=== PATIENT | female | born 1985 | race Caucasian/White ===

== ENCOUNTER 2018-01-06 20:00 | Inpatient (IN) | payer OTHER ==
[2018-01-06] MEDS ORDERED: AMPICILLIN - 2 GM in SODIUM CHLORIDE 100 ML IVPB ONE (20:30)
[2018-01-06] MEDS ORDERED: DEXTROSE 5%-LACTATED RINGERS 1,000 ML IV SCH (20:45)
--- NOTE | 2018-01-06 20:49 | HP ---
Past Medical History - Primary Care Physician PCP:: Myriam Clark - Admission Chief Complaint: 32 yrs , edc 01/08/18 39.5/7 weeks IUP c/o SROM since 7.30 PM followed by onset LP since 8.00PM History of Present Illness: pt did not have care in [facility]. pt was seen for interview at [address] [place] [address] , on 01/01/18 , she came to L&D c/o cramps she recently arrived from [place], she was hydrated with fluids , panel was drawn hgb 9.07/15, Random glucose 163, normal liver enz & electrolytes, Rpr nr, hiv nr , Rubella immune sono on 01/01/18 reporte sliup, vx, 39.3 weeks , rory 19.1 weeks , fundal placenta , efw 3741 gm she has few records from her country sono 12/15/17 :sliup, 36.4 weeks, vx, efw 3097gm 04/22/17 h/h13.8/41 , plt 303, liver profile normal, Hbsag neg , hcv antibody nr , Random Glucose on 08/27/17--84. 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 Weeks Gestation by Dates: 40 ...EDC by Dates: 01/06/18 ...EDC by Sono: 01/08/18 (39.5 weeks ) Heme/Onc: Yes: Anemia Infectious Disease: No: AIDS, HIV Psych: Yes: Other (no c/o mental illness) - Past Surgical History Past Surgical History: Yes: Cholecystectomy (kami wattsy 2015) Hx Myomectomy: No Hx Transabdominal Cerclage: No - Alcohol/Substance Use Hx Alcohol Use: No History of Substance Use: reports: None Home Medications - Allergies Allergies/Adverse Reactions: Allergies Allergy/AdvReac Type Severity Reaction Status Date / Time No Known Allergies Allergy Verified 01/06/18 22:59 - Home Medications Home Medications: Ambulatory Orders Vit,Calc76/Iron/Folic [Pnv 29-1 Tablet] 1 tab PO DAILY 01/06/18 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 - Maternity Constitutional: Yes: Well Nourished Eyes: Yes: WNL HENT: Yes: WNL, Normocephalic Neck: Yes: WNL Cardiovascular: Yes: WNL, Regular Rate and Rhythm Lungs: Clear to auscultation - Abdominal Exam/OB Fundal Height: 38 Number of Fetuses: Single Presentation: Vertex Regularity: Irregular (5-6 min) Intensity: Moderate Monitor Mode: External Heart Rate (range): 150 Heart Rate Location: [facility] Category: I Accelerations: Uniform Decelerations: None - Vaginal Exam/OB Vaginal Bleediing: No Dilatation (cm): 3 Effacement (%): 50 Amniotic Membrane Status: Ruptured Nitrazine Test: Positive Amniotic Fluid: Yes: Clear Presentation: Vertex/Position (exam at 8.15 PM) Station: -3 - 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 Musculoskeletal: Yes: WNL Extremities: Yes: WNL. No: Calf Tenderness Edema: Yes Edema: LLE: 1+, RLE: 1+ Deep Tendon Reflex Grade: Normal +2 ...Motor Strength: WNL Psychiatric: Yes: WNL, Alert - Labs Lab Results: Laboratory Tests 01/01/18 01/01/18 01/01/18 17:45 17:45 17:45 WBC 11.0 H Hgb 9.3 L Hct 29.6 L Plt Count 257 PT with INR 12.20 INR 1.08 PTT (Actin FS) 23.6 L Sodium 139 Potassium 4.0 Chloride 107 BUN 7 Creatinine 0.5 L Random Glucose 163 H AST 17 ALT 16 Urine Protein Ur Leukocyte Esterase Urine WBC (Auto) Urine RBC (Auto) Opiates Screen Methadone Screen Barbiturate Screen Phencyclidine Screen Ur Amphetamines Screen MDMA (Ecstasy) Screen Benzodiazepines Screen Cocaine Screen U Marijuana (THC) Screen RPR Titer HIV 1&2 Antibody Screen HIV P24 Antigen 01/01/18 01/01/18 01/01/18 17:45 17:45 18:00 WBC Hgb Hct Plt Count PT with INR INR PTT (Actin FS) Sodium Potassium Chloride BUN Creatinine Random Glucose AST ALT Urine Protein Negative Ur Leukocyte Esterase 2+ H Urine WBC (Auto) 8 Urine RBC (Auto) 4 Opiates Screen Methadone Screen Barbiturate Screen Phencyclidine Screen Ur Amphetamines Screen MDMA (Ecstasy) Screen Benzodiazepines Screen Cocaine Screen U Marijuana (THC) Screen RPR Titer Nonreactive HIV 1&2 Antibody Screen Negative HIV P24 Antigen Negative 01/01/18 18:00 WBC Hgb Hct Plt Count PT with INR INR PTT (Actin FS) Sodium Potassium Chloride BUN Creatinine Random Glucose AST ALT Urine Protein Ur Leukocyte Esterase Urine WBC (Auto) Urine RBC (Auto) Opiates Screen Negative Methadone Screen Negative Barbiturate Screen Negative Phencyclidine Screen Negative Ur Amphetamines Screen Negative MDMA (Ecstasy) Screen Negative Benzodiazepines Screen Negative Cocaine Screen Negative U Marijuana (THC) Screen Negative RPR Titer HIV 1&2 Antibody Screen HIV P24 Antigen Laboratory Tests 01/06/18 01/06/18 21:45 21:45 WBC 15.7 H Hgb 9.7 L Hct 30.8 L Plt Count 270 Sodium 140 Potassium 4.0 Chloride 107 Carbon Dioxide 23 BUN 5 L Random Glucose 104 Laboratory Tests 01/06/18 21:45 Blood Type A POSITIVE Antibody Screen Negative Problem List - Problems (1) with 39 completed weeks gestation Code(s): Z3A.39 - 39 WEEKS GESTATION OF (2) SROM (spontaneous rupture of membranes) Code(s): TQC2577 - (3) History of inadequate care Code(s): O09.30 - SUPRVSN OF PREG W INSUFFICIENT ANTENAT CARE, UNSP TRIMESTER Assessment/Plan 31 yrs , 39.5 weeks srom , in early labor gbs unknown Plan ampicillin ;prophylaxis for gbs prefers epidural labor analgesia trial vaginal delivery
[2018-01-06 21:56] VITALS: BMI 29.8
[2018-01-06 22:11] LABS: HEMATOCRIT 30.8 % (32.4-45.2); HEMOGLOBIN 9.7 GM/dL (10.7-15.3); MCH 23.5 pg (25.7-33.7); MCHC 31.5 g/dl (32.0-36.0); MEAN CELL VOLUME 74.7 fl (80-96); MEAN PLT VOLUME 8.5 fl (7.5-11.1); PLATELET COUNT 270 K/MM3 (134-434); RBC 4.12 M/mm3 (3.60-5.2); RDW 16.4 % (11.6-15.6); WHITE BLOOD COUNT 15.7 K/mm3 (4.0-10.0)
[2018-01-06] MEDS ORDERED: FENTANYL/BUPIVACAINE/NS/PF - PCEA - 50 ML DISP.SYRIN EP ONE (22:16)
[2018-01-06] MEDS ORDERED: BUPIVACAINE HCL/PF 0.25% (2.5MG/ML) 10 ML VIAL ONE ×2 (22:21→23:33)
[2018-01-06 22:33] LABS: ANION GAP 10 MMOL/L (8-16); BLOOD UREA NITROGEN 5 mg/dL (7-18); CALCIUM 8.4 mg/dL (8.5-10.1); CHLORIDE 107 mmol/L (98-107); CO2 23 mmol/L (21-32); CREATININE 0.6 mg/dL (0.55-1.3); GLUCOSE,RANDOM 104 mg/dL (74-106); SODIUM 140 mmol/L (136-145)
[2018-01-06] MEDS ORDERED: NALOXONE HCL 0.4 MG/ML VIAL IVPUSH PRN (22:46)
[2018-01-06] MEDS ORDERED: FENTANYL/BUPIVACAINE/NS/PF - PCEA - 50 ML DISP.SYRIN EP SCH (23:00)
--- NOTE | 2018-01-06 23:12 | PN ---
Progress Note, Labor Vaginal Exam #1 Labor Exam Date: 01/06/18 Labor Exam Time: 23:00 Heart Rate (range): 160 Dilatation: 4-5 Effacement (%): 80 Amniotic Membrane Status: Ruptured Presentation: Vertex/Position Station: -2 Remarks: variable , cat-2 uc 3-5 min epidural received at 22.30 hr Vaginal Exam #2 Labor Exam Date: 01/07/18 Labor Exam Time: 02:15 Heart Rate (range): 150 Dilatation: 8-9 Effacement (%): 100 Amniotic Membrane Status: Ruptured Presentation: Vertex/Position Station: -1 (-1/0) Remarks: fhr cat-1 uc 1-2 min pt c/o epidural 1st time did not work.c/o pain on Lt side 12.15 AM epidural was replaced & 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 Selected Entries temp at 12.00 98.1 1.00 98.2 2.00 98.2 01/07/18 01:30 Pulse Rate 117 H Blood Pressure 115/56 Vaginal Exam #3 Labor Exam Date: 01/07/18 Labor Exam Time: 03:15 Heart Rate (range): 160 Dilatation: rim Effacement (%): 100 Station: 0 (0/+1) Remarks: fhr cat-1 uc 2min pt c/o pain, states she does not have pain relief Vaginal Exam #4 Labor Exam Date: 01/07/18 Labor Exam Time: 05:05 Heart Rate (range): 140 Dilatation: rim lt Amniotic Membrane Status: Ruptured Presentation: Vertex/Position Station: 0 (0+1 , caput) Remarks: fhr cat -2 uc dysfunctional 1-2-3 mild to moderate pt not at rest , c/o constant pain Selected Entries 01/07/18 01/07/18 02:00 05:00 Temperature 98.2 F 98.9 Pulse Rate 124 H Blood Pressure 117/61 Vaginal Exam #5 Labor Exam Date: 01/07/18 Labor Exam Time: 06:15 Heart Rate (range): 140 Dilatation: rim rt Effacement (%): 100 Amniotic Membrane Status: Ruptured Station: 0 (0+1 , caput) Remarks: fhr cat- 1 uc are dysfunctional no progress in dilatation & descent for 4 hrs pt exahusted, refuses to continue trial of labor Plan : delivery by primary c/section Selected Entries 01/07/18 01/07/18 05:00 06:00 Temperature 98.9 F 98.7 F Pulse Rate 124 H 132 Blood Pressure 117/61 112/67
[2018-01-07] MEDS ORDERED: BUPIVACAINE HCL/PF 0.25% (2.5MG/ML) 10 ML VIAL ONE ×2 (00:10→03:30)
[2018-01-07] MEDS: AMPICILLIN - 1 GM in SODIUM CHLORIDE 100 ML IVPB SCH ×3 (00:30→10:09)
[2018-01-07] MEDS ORDERED: AMPICILLIN SODIUM 1 GM VIAL ONE ×2 (00:38→04:13)
[2018-01-07] MEDS ORDERED: FENTANYL/BUPIVACAINE/NS/PF - PCEA - 50 ML DISP.SYRIN EP ONE ×2 (01:38→04:09)
[2018-01-07] MEDS ORDERED: OXYTOCIN 20 UNITS in 0.9% NS 20 UNIT/1,000 ML INFUS.BAG IV ONE ×3 (03:07→10:19)
[2018-01-07] MEDS ORDERED: OXYTOCIN 30 UNITS in 0.9% NS 30 UNIT/500 ML INFUS.BAG IVPB ONE (04:39)
[2018-01-07] MEDS ORDERED: CITRIC ACID/SODIUM CITRATE 30 ML UNIT-DOSE CUP PO ONE (06:27)
[2018-01-07] MEDS ORDERED: ELECTROLYTE-148 SOLN 1,000 ML IV SCH (06:30)
[2018-01-07] MEDS ORDERED: PHENYLEPHRINE HCL 10 MG/1 ML SINGLE DOSE VIAL ONE (07:06)
[2018-01-07] MEDS ORDERED: morphine SULFATE/Preservative Free 0.5 MG/ML (1cc Syringe) ONE (07:06)
[2018-01-07] MEDS ORDERED: ceFAZolin SODIUM 1 GM VIAL ONE ×2 (07:25→15:08)
[2018-01-07] MEDS ORDERED: MIDAZOLAM HCL 2 MG/2 ML SINGLE DOSE VIAL ONE (07:42)
[2018-01-07] MEDS ORDERED: KETOROLAC TROMETHAMINE 30 MG/1 ML VIAL ONE (08:14)
[2018-01-07] MEDS ORDERED: MEPERIDINE HCL CARPU-JECT 25 MG/1 ML DISP.SYRIN ONE (08:20)
[2018-01-07 08:44] LABS: ARTERIAL BLD GAS O2 SATURATION 17.4 % (90-98.9); ARTERIAL BLOOD GAS BASE EXCESS -2.7 meq/l (-2-2); ARTERIAL BLOOD GAS PCO2 57.1 mmHg (35-45); ARTERIAL BLOOD GAS PO2 14.2 mmHg (80-100); ARTERIAL BLOOD GAS pH 7.27 (7.35-7.45)
[2018-01-07 08:54] LABS: VENOUS PH 7.3 (7.32-7.42)
[2018-01-07 08:55] LABS: VENOUS PC02 46.5 mmHg (38-52); VENOUS PO2 22.1 mmHg (28-48)
[2018-01-07] MEDS ORDERED: METHYLERGONOVINE MALEATE 0.2 MG/1 ML AMP IM PRN (09:01)
--- NOTE | 2018-01-07 09:28 | OP ---
Operative Note - Note: Operative Date: 01/07/18 Pre-Operative Diagnosis: 39.6 weeks, failure to progress in labor Operation: Primary Low Flap Transverse C/section Findings: 7.33 AM, Baby Girl, 9/9 , Vx, ROP position Wt 8'2" Ht 20", Clear fluid both tubes & ovaries normal Dr Hylton Associate Entertainment Editor present in the OR Surgeon: Myriam Clark Geological Specialist: Lonny Marino Anesthesiologist/MATCHING MACHINE OPERATOR: Elton Simmons Anesthesia: Spinal Specimens Removed: cord segment for cord gas. cord blood. placenta Estimated Blood Loss (mls): 1,000 Drains, Volume Out (mls): 350 (caitlin color urine in Noonan bag ) Fluid Volume Replaced (mls): 1,500 (2 gm IV ancef, Methergine 0.2mg ) Operative Report Dictated: Yes
[2018-01-07] MEDS ORDERED: morphine SULFATE/Preservative Free 0.5 MG/ML (1cc Syringe) EP ONE (09:30)
[2018-01-07] MEDS ORDERED: ONDANSETRON 4 MG/2 ML VIAL IVPUSH PRN (09:30)
--- NOTE | 2018-01-07 09:44 | PN ---
Delivery - Delivery Section: Primary, Low Flap Transverse (Indication, 39.6 weeks Failure To Progress in Labor) Type of Anesthesia: Spinal Episiotomy/Laceration: None EBL (cc): 1,000 (Noonan out put 350 ml ciatlin color urine ) Delivery, Single - Stages of Labor Date 1st Stage Initiatied: 01/06/18 Time 1st Stage Initiated: 20:00 Date of Delivery: 01/07/18 Time of Delivery: 07:33 Time Placenta Delivered: 07:34 Placenta: Yes: Manual Removal, Uterine Exploration - Condition of Infant Stereotyper Apprentice/Animal Shelter Worker Present: Yes Name: Hannah Hylton Gender: Female Weight: 8 lb 2 oz Position: Right, OP Total Hours ROM (Hrs/Mins): 12/4 - 1 Minute Total Score: 9 5 Minutes Total Score: 9 - [place] Feeding Plan Initial Plan: Elected not to breastfeed exclusively throughout hospitalization Remarks - Remarks Remarks: 32 yrs , 39.5 weeks hospitalized for SROM , followed by labor pain on Epidural labor analgesia was given. GBS unknown , she received 3 doses of Iv Ampicilln Intraop course was uneventful
--- NOTE | 2018-01-07 10:27 | OP ---
DATE OF OPERATION: 01/07/2018 PREOPERATIVE DIAGNOSIS: At 39.6 weeks, failure to progress in labor. OPERATION: Primary low flap transverse section. SURGEON: Myriam Clark MD ANESTHESIOLOGIST: Elton Simmons MD SENIOR PUBLICATIONS SPECIALIST SURGEON: KARINA Cifuentes COMBINE OPERATOR: Hannah Hylton MD ANESTHESIA: Spinal. FINDINGS: This is a 32-year-old, 2, para 1-0-0-1, was 39.6 weeks today. Was hospitalized on January 06 for spontaneous rupture of membranes since 7:30 p.m. on January 06, followed by the onset of labor at 8 p.m. She progressed in labor. Epidural labor analgesia was given, and she dilated up to 9 cm and 0 station. From 2:15 a.m. on January 07 to 6:15 a.m. her dilatation was only 9 cm and station was 0 station with a caput only, so it was failure to progress in labor, and patient requested for a , did not want to continue further trial of labor. Postoperatively, ROP position, baby girl. is 9, 9. Weight was 8 pounds 2 ounces. DESCRIPTION OF PROCEDURE: Abdomen was shaved, prepped. Noonan catheter was placed. The consent was taken. Patient was taken to the operating room table. Epidural was removed and spinal anesthesia was given. Patient was placed in supine position. Abdomen was painted and draped in usual manner. Pfannenstiel incision was made in the skin and subcutaneous tissue. Anterior rectus sheath was incised transversely. Bleeding points were clamped and cauterized. Rectus muscle was from the rectus sheath, then parietal peritoneum was opened vertically. Bladder was distended and high. Then lower flap of the peritoneum was opened transversely, and the bladder was pushed down. Lower uterine segment was isolated, and it was incised transversely. Baby was delivered at 7:32 a.m. from ROP position. was 9, 9, and baby's weight was 8 pounds 2 ounces. Height was 20 inches, baby girl. Cord was clamped and cut. Baby was handed over to the body designer who was present in the operating room. Then cord segment was collected for the cord blood gas, and then the cord blood was collected. Placenta was completely removed with the membranes. Uterine cavity was clean, and the uterine incision was closed in 2 layers. First one was a continuous locking with a Biosyn 0 suture, second was continuous intermittent locking with a Biosyn 0 suture. Then the bladder peritoneum was first closed with a Biosyn 0 suture. Hemostasis was verified. Both tubes and ovaries were normal, and then irrigation was done. Sponge, instrument, needle count was correct. The abdominal closure was done. Parietal peritoneum was closed with a Vicryl 0 suture. Muscles were approximated together with Vicryl 0 interrupted sutures, and then the anterior rectus sheath was closed with a Vicryl 0 continuous suture. Hemostasis was checked before closing the anterior rectus sheath. Underneath the muscle, between sheath and the muscle, hemostasis was verified. In subcutaneous tissue irrigation was done and hemostasis was verified. Subcutaneous tissue was approximated with a 2-0 Vicryl and a 3-0 Biosyn suture. Then skin was approximated with a 3-0 Vicryl on a strait needle. Steri-Strips were applied. Pressure dressing was given. Blood clots were removed from the vagina. Patient tolerated the procedure well. She was transferred to the recovery room in stable condition. Estimated blood loss was 1000 mL. Intraoperative urine output was 350 mL. It was caitlin color. She received 1500 mL of the IV fluid. She was given IM Methergine intraoperatively to active good uterine contraction and retraction, and she received 2 g of IV Ancef prior to the incision. Triny [id number] MTDD
[2018-01-07] MEDS: OXYTOCIN 20 UNITS in 0.9% NS 20 UNIT/1,000 ML INFUS.BAG IV SCH ×2 (10:30→18:24)
[2018-01-07] MEDS: ACETAMINOPHEN 1000 MG/100 ML VIAL (NON FORMULARY) IVPB PRN ×2 (13:21→19:34)
[2018-01-07] MEDS ORDERED: DEXTROSE 5%-WATER - 50 ML IVPB ONE (15:08)
[2018-01-07] MEDS: CEFAZOLIN 1 GM in DEXTROSE 5%-WATER - 50 ML IVPB SCH (15:13)
[2018-01-08] MEDS ORDERED: ceFAZolin SODIUM 1 GM VIAL ONE ×2 (00:26→07:04)
[2018-01-08] MEDS ORDERED: DEXTROSE 5%-WATER - 50 ML IVPB ONE ×2 (00:26→07:04)
[2018-01-08] MEDS: CEFAZOLIN 1 GM in DEXTROSE 5%-WATER - 50 ML IVPB SCH ×2 (00:30→07:09)
[2018-01-08] MEDS: ACETAMINOPHEN 1000 MG/100 ML VIAL (NON FORMULARY) IVPB PRN (01:43)
[2018-01-08] MEDS ORDERED: oxyCODONE HCL 5 MG TABLET PO PRN (06:00)
[2018-01-08 07:14] LABS: BASO % 0.4 % (0-2.0); EOS % 0.7 % (0-4.5); HEMATOCRIT 22.3 % (32.4-45.2); LYMPH % 27.9 % (8-40); MCH 23.6 pg (25.7-33.7); MCHC 31.2 g/dl (32.0-36.0); MEAN CELL VOLUME 75.6 fl (80-96); MONO % 7.4 % (3.8-10.2); NEUT % 63.6 % (42.8-82.8); PLATELET COUNT 243 K/MM3 (134-434); RBC 2.95 M/mm3 (3.60-5.2); RDW 16.5 % (11.6-15.6); WHITE BLOOD COUNT 19.7 K/mm3 (4.0-10.0)
[2018-01-08] MEDS: oxyCODONE HCL 5 MG TABLET PO PRN (07:21)
[2018-01-08] MEDS: IBUPROFEN 600 MG TABLET (FP) PO PRN ×4 (07:22→22:46)
[2018-01-08] MEDS: SIMETHICONE 80 MG TAB.CHEW (FP) PO PRN ×3 (07:23→18:15)
[2018-01-08] MEDS ORDERED: BISACODYL 10 MG SUPP.RECT RC PRN (09:01)
[2018-01-08] MEDS: PRENATAL VITAMINS W/ FOLIC ACID TABLET (FP) PO SCH (09:39)
[2018-01-08] MEDS ORDERED: ENOXAPARIN NA (PORCINE) 40 MG/0.4 ML DISP.SYRIN SQ ONE (10:00)
[2018-01-08] MEDS ORDERED: DIPHTH,PERTUSS(ACELL),TET 0.5 ML DISP.SYRIN IM ONE (10:00)
--- NOTE | 2018-01-08 10:45 | PN ---
Post Progress Note - Subjective Subjective: 32 yo Para 2 status post , seen and evaluated. Doing well. Post Day: 1 Type of Delivery: Primary C/S Vital Signs: Vital Signs Temperature 98.3 F 01/08/18 08:00 Pulse Rate 103 H 01/08/18 08:00 Respiratory Rate 17 01/08/18 08:00 Blood Pressure 105/59 01/08/18 08:00 O2 Sat by Pulse Oximetry (%) 99 01/07/18 10:00 Breast Exam: Yes: Soft Incision: Yes: Dressing dry and intact Abdomen/GI: Yes: Abdomen soft, Tolerating PO Lochia: Yes: Rubra Lochia, amount: Small Extremities: Yes: Calves non-tender Perineum: Yes: Intact Activity: Other (She's lying in bed) - Labs Labs: CBC WBC 19.7 K/mm3 (4.0-10.0) H 01/08/18 06:30 RBC 2.95 M/mm3 (3.60-5.2) L 01/08/18 06:30 Hgb 7.0 GM/dL (10.7-15.3) L 01/08/18 06:30 Hct 22.3 % (32.4-45.2) L D 01/08/18 06:30 MCV 75.6 fl (80-96) L 01/08/18 06:30 MCH 23.6 pg (25.7-33.7) L 01/08/18 06:30 MCHC 31.2 g/dl (32.0-36.0) L 01/08/18 06:30 RDW 16.5 % (11.6-15.6) H 01/08/18 06:30 Plt Count 243 K/MM3 (134-434) 01/08/18 06:30 MPV 8.0 fl (7.5-11.1) 01/08/18 06:30 Absolute Neuts (auto) 12.5 K/mm3 (1.5-8.0) H 01/08/18 06:30 Neutrophils % 63.6 % (42.8-82.8) 01/08/18 06:30 Lymphocytes % 27.9 % (8-40) 01/08/18 06:30 Monocytes % 7.4 % (3.8-10.2) 01/08/18 06:30 Eosinophils % 0.7 % (0-4.5) 01/08/18 06:30 Basophils % 0.4 % (0-2.0) 01/08/18 06:30 Nucleated RBC % 0 % (0-0) 01/08/18 06:30 Assessment/Plan Status post Anemia Consider blood transfusion
--- NOTE | 2018-01-08 11:47 | PN ---
Progress Note (short form) - Note Progress Note: POD #1 - s/p under spinal anesthesia with duramorph. VSS. Pt. doing well, sitting up comfortably in chair nursing baby. No complaints. Good pain control. No apparent anesthetic complications noted. Continue current care.
--- NOTE | 2018-01-08 12:30 | PN ---
Post Progress Note - Subjective Subjective: c/o pain 6-7/10 voided twice after leung was discontinued she does not feel dizzy , but she feels tired c/o gas discomfort, she is passing flatus Post Day: 1 Type of Delivery: Primary C/S Vital Signs: Vital Signs Temperature 98.3 F 01/08/18 08:00 Pulse Rate 103 H 01/08/18 08:00 Respiratory Rate 17 01/08/18 08:00 Blood Pressure 105/59 01/08/18 08:00 O2 Sat by Pulse Oximetry (%) 99 01/07/18 10:00 Breast Exam: Yes: Soft, Other (BF ). No: Engorged Uterus: Yes: Fundus Firm, Fundus below umbilicus, Non-tender Incision: Yes: Dressing dry and intact. No: Redness, Oozing Abdomen/GI: Yes: Abdomen soft (BS active ), Passing flatus, Tolerating PO ( clear fluids ). No: Abdominal Distention, Tender Lochia: Yes: Rubra Lochia, amount: Moderate Extremities: Yes: Calves non-tender Perineum: Yes: Intact Activity: Ambulating - Labs Labs: CBC WBC 19.7 K/mm3 (4.0-10.0) H 01/08/18 06:30 RBC 2.95 M/mm3 (3.60-5.2) L 01/08/18 06:30 Hgb 7.0 GM/dL (10.7-15.3) L 01/08/18 06:30 Hct 22.3 % (32.4-45.2) L D 01/08/18 06:30 MCV 75.6 fl (80-96) L 01/08/18 06:30 MCH 23.6 pg (25.7-33.7) L 01/08/18 06:30 MCHC 31.2 g/dl (32.0-36.0) L 01/08/18 06:30 RDW 16.5 % (11.6-15.6) H 01/08/18 06:30 Plt Count 243 K/MM3 (134-434) 01/08/18 06:30 MPV 8.0 fl (7.5-11.1) 01/08/18 06:30 Absolute Neuts (auto) 12.5 K/mm3 (1.5-8.0) H 01/08/18 06:30 Neutrophils % 63.6 % (42.8-82.8) 01/08/18 06:30 Lymphocytes % 27.9 % (8-40) 01/08/18 06:30 Monocytes % 7.4 % (3.8-10.2) 01/08/18 06:30 Eosinophils % 0.7 % (0-4.5) 01/08/18 06:30 Basophils % 0.4 % (0-2.0) 01/08/18 06:30 Nucleated RBC % 0 % (0-0) 01/08/18 06:30 Other Findings, Remarks: rs cta i/o adequate Problem List - Problems (1) with 39 completed weeks gestation Code(s): Z3A.39 - 39 WEEKS GESTATION OF (2) SROM (spontaneous rupture of membranes) Code(s): YOQ9341 - (3) History of inadequate care Code(s): O09.30 - SUPRVSN OF PREG W INSUFFICIENT ANTENAT CARE, UNSP TRIMESTER (4) delivery delivered Code(s): O82 - ENCOUNTER FOR DELIVERY WITHOUT INDICATION (5) Anemia Code(s): D64.9 - ANEMIA, UNSPECIFIED (6) Encounter for visit Code(s): Z39.2 - ENCOUNTER FOR ROUTINE FOLLOW-UP Assessment/Plan post op anemia post c/section pt had anemia before c/section she is not symptomatic, hemodynamically she is stable she is notified about h/h 11/08 i offered he blood transfusion , r/b/a explained . she declined anemia counselled she prefers to continue po iron & pnv encourage ambulation, deep breathing & po fluids ct pocare
[2018-01-08] MEDS: ACETAMINOPHEN 325 MG TABLET (FP) PO PRN ×3 (13:27→22:46)
[2018-01-08] MEDS: FERROUS SO4 325 MG TABLET (FP) PO SCH (22:42)
[2018-01-08] MEDS: SENNOSIDES/DOCUSATE COMBO (SENNA PLUS) TABLET (UD) PO PRN (22:42)
--- NOTE | 2018-01-09 06:39 | PN ---
Progress Note (short form) - Note Progress Note: pod 2 ,no c/o passing gas, no dizziness CBC, BMP 01/08/18 06:30 01/06/18 21:45 Last Vital Signs Temp Pulse Resp BP Pulse Ox 97.8 F 99 H 20 97/50 99 01/08/18 20:57 01/08/18 20:57 01/08/18 20:57 01/08/18 20:57 01/07/18 10:00 abdomen soft, no distension, no cva incision dry, clean no calf tenderness no excess vaginal bleeding plan repeat cbc, ambulate iron, vit anemia asymptomatic, will revaluate after cbc
[2018-01-09] MEDS: ACETAMINOPHEN 325 MG TABLET (FP) PO PRN ×3 (06:47→19:26)
[2018-01-09] MEDS: SIMETHICONE 80 MG TAB.CHEW (FP) PO PRN ×3 (06:47→19:26)
[2018-01-09] MEDS: IBUPROFEN 600 MG TABLET (FP) PO PRN ×2 (06:47→19:27)
[2018-01-09] MEDS: FERROUS SO4 325 MG TABLET (FP) PO SCH ×2 (10:57→21:19)
[2018-01-09] MEDS: PRENATAL VITAMINS W/ FOLIC ACID TABLET (FP) PO SCH (10:57)
--- NOTE | 2018-01-09 15:29 | DS ---
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 OPERATOR Vital Signs: Vital Signs Temperature 97.8 F 01/09/18 10:00 Pulse Rate 99 H 01/09/18 10:00 Respiratory Rate 20 01/09/18 10:00 Blood Pressure 104/55 L 01/09/18 10:00 O2 Sat by Pulse Oximetry (%) 99 01/07/18 10:00 Selected Entries 01/10/18 01/10/18 01/11/18 09:06 22:00 10:00 Temperature 98.0 F 98.4 F 98.8 F Pulse Rate 82 77 75 Blood Pressure 101/53 L 107/64 106/65 Constitutional: Yes: Pallor (before blood transfusion she was c/o headache.before discharge patient had no headache), Other (pain scale 5/10) Eyes: Yes: WNL HENT: Yes: WNL Neck: Yes: WNL Cardiovascular: Yes: WNL Respiratory: Yes: WNL Gastrointestinal: Yes: WNL, Normal Bowel Sounds, Soft, Other (bm done). No: Distention Renal/: Yes: WNL, Other (voiding without difficulty). No: CVA Tenderness - Left, CVA Tenderness - Right ....Post : Yes: Uterus firm, Uterus non-tender, Moderate lochia rubra Breast(s): Yes: WNL (BF ., soft) Musculoskeletal: Yes: WNL Extremities: Yes: WNL. No: Calf Tenderness Edema: LLE: 1+, RLE: 1+ Integumentary: Yes: WNL Wound/Incision: Yes: Clean/Dry, Well Approximated, Sutures Intact (intradermal suture), Steri Strips, Open to air Neurological: Yes: WNL, Alert, Oriented ...Motor Strength: WNL Psychiatric: Yes: WNL, Alert, Oriented Labs: CBC, BMP 01/08/18 06:30 01/06/18 21:45 Laboratory Tests 01/10/18 01/11/18 07:00 08:39 WBC 10.8 H 12.0 H RBC 2.69 L 3.64 Hgb 6.4 L* 9.3 L Hct 20.2 L 28.3 L D Plt Count 330 D 346 Delivery - Delivery Section: Primary, Low Flap Transverse (Indication, 39.6 weeks Failure To Progress in Labor) Type of Anesthesia: Spinal Episiotomy/Laceration: None EBL (cc): 1,000 (Noonan out put 350 ml caitlin color urine ) Delivery, Single - Stages of Labor Date 1st Stage Initiatied: 01/06/18 Time 1st Stage Initiated: 20:00 Date of Delivery: 01/07/18 Time of Delivery: 07:33 Time Placenta Delivered: 07:34 Placenta: Yes: Manual Removal, Uterine Exploration - Condition of Efficiency Engineer/Affirmative Action Specialist Present: Yes Name: Hannah Hylton Infant Gender: Female Weight: 8 lb 2 oz Position: Right, OP Total Hours ROM (Hrs/Mins): 12/4 - 1 Minute Total Score: 9 5 Minutes Total Score: 9 - [place] Feeding Plan Initial Plan: Elected not to breastfeed exclusively throughout hospitalization Remarks - Remarks Remarks: 32 yrs , 39.5 weeks hospitalized for SROM , followed by labor pain on Epidural labor analgesia was given. GBS unknown , she received 3 doses of Iv Ampicilln Intraop course was uneventful . post op Anemia continued pt counselled for anemia she had declined blood transfusion, pt was symptomatic with headache ,anemia , on 01/10 post op day #3, she finally agreed to take blood transfusion. she received 2 pack cell transfusions. on 01/10/18 she felt better , she is discharged by Dr Wilson on 01/11/18 Discharge Summary Reason For Visit: LABOR Current Active Problems Anemia (Acute) delivery delivered (Acute) Encounter for visit (Acute) Failure to progress in first stage of labor (Acute) History of inadequate care (Acute) with 39 completed weeks gestation (Acute) SROM (spontaneous rupture of membranes) (Acute) Condition: Stable - Instructions Diet, Activity, Other Instructions: Post Instructions DIET: Continue good diet high in protein, calcium, and iron rich foods. Drink at least eight (8) glasses of water daily in addition to other fluids. ct Regular diet MEDICATIONS: Continue vitamins and iron as previously directed. Motrin and Tylenol may be taken for minor discomfort. ACTIVITY: Mild to moderate exercise may be started in two (2) weeks. Take frequent rest periods. Resume normal activity after six (6) week check up. WOUND CARE OF OPERATIVE SITE: Continue use of perineal bottle until vaginal discharge stops. Keep area clean. Shower daily. Keep abdominal wound dry. Report any drainage or redness to physician. Tub baths, tampons and douches are not permitted for [address] Breast feeding & or Bottle feeding BREAST CARE: (For those that are not breast feeding): If engorgement occurs: Wear tight fitting bra. Take Tylenol or Motrin for pain. Apply cold packs (ice in bags to each breast ) FAMILY PLANNING: There are many control alternatives to pursue and they should be discussed at your first office visit. You may resume sexual activity after your six (6) week check up. (Remember, breast feeding is not a contraceptive) NEXT PHYSICIAN APPOINTMENT: Be certain to call for a one (1 ) week appointment, unless otherwise directed. REPEAT CBC In the Clininc in the clinic after4 weeks Call Clinic or got to Emergency Dept if you have any of the following: Heavy vaginal bleeding Painful urination Leg pain Unusual odor noted to vaginal bleeding High fever Red streaking noted on breast Referrals: Myriam Clark MD [Staff Physician] - - Home Medications Comprehensive Discharge Medication List: Ambulatory Orders Vit,Calc76/Iron/Folic [Pnv 29-1 Tablet] 1 tab PO DAILY 01/06/18 Acetaminophen [Tylenol .Regular Strength -] 500 mg PO Q4H PRN #30 tablet Ferrous Sulfate [Feosol] 325 mg PO BID #60 tab 01/08/18 Ibuprofen [Motrin -] 600 mg PO Q4H PRN #30 tablet 01/08/18 Vitamins (Sjr) - 1 tab PO DAILY #30 tablet 01/08/18 Sennosides/Docusate Sodium [Pericolace -] 2 tablet PO HS PRN #60 tablet
[2018-01-09] MEDS: oxyCODONE HCL 5 MG TABLET PO PRN (19:27)
[2018-01-09] MEDS: SENNOSIDES/DOCUSATE COMBO (SENNA PLUS) TABLET (UD) PO PRN (21:20)
[2018-01-10] MEDS: SIMETHICONE 80 MG TAB.CHEW (FP) PO PRN ×3 (03:59→20:06)
[2018-01-10] MEDS: oxyCODONE HCL 5 MG TABLET PO PRN ×2 (04:01→22:02)
[2018-01-10] MEDS: IBUPROFEN 600 MG TABLET (FP) PO PRN ×3 (04:01→20:08)
[2018-01-10] MEDS: ACETAMINOPHEN 325 MG TABLET (FP) PO PRN ×2 (08:05→20:06)
[2018-01-10 08:12] LABS: BASO % 0.5 % (0-2.0); EOS % 3.8 % (0-4.5); HEMATOCRIT 20.2 % (32.4-45.2); LYMPH % 40.3 % (8-40); MCH 23.9 pg (25.7-33.7); MEAN CELL VOLUME 74.9 fl (80-96); MEAN PLT VOLUME 7.8 fl (7.5-11.1); NEUT % 48.4 % (42.8-82.8); PLATELET COUNT 330 K/MM3 (134-434); RBC 2.69 M/mm3 (3.60-5.2); RDW 16.5 % (11.6-15.6); WHITE BLOOD COUNT 10.8 K/mm3 (4.0-10.0)
[2018-01-10 08:18] LABS: HEMOGLOBIN 6.4 GM/dL (10.7-15.3)
--- NOTE | 2018-01-10 08:28 | PN ---
Post Progress Note - Subjective Subjective: 32 yo Para 2 status post primary , seen and evaluated. She c/o headache. She's severely anemic but keeps refusing blood transfusion as advised. Extensive discussion with patient. Post Day: 3 Type of Delivery: Primary C/S Vital Signs: Vital Signs Temperature 98.1 F 01/09/18 22:00 Pulse Rate 94 H 01/09/18 22:00 Respiratory Rate 18 01/09/18 22:00 Blood Pressure 105/62 01/09/18 22:00 O2 Sat by Pulse Oximetry (%) 99 01/07/18 10:00 Breast Exam: Yes: Soft Uterus: Yes: Fundus Firm Incision: Yes: Other (sterile strips in place) Abdomen/GI: Yes: Abdomen soft, Tolerating PO Lochia: Yes: Rubra Lochia, amount: Small Extremities: Yes: Calves non-tender Perineum: Yes: Intact Activity: Ambulating - Labs Labs: CBC WBC 10.8 K/mm3 (4.0-10.0) H 01/10/18 07:00 RBC 2.69 M/mm3 (3.60-5.2) L 01/10/18 07:00 Hgb 6.4 GM/dL (10.7-15.3) L* 01/10/18 07:00 Hct 20.2 % (32.4-45.2) L 01/10/18 07:00 MCV 74.9 fl (80-96) L 01/10/18 07:00 MCH 23.9 pg (25.7-33.7) L 01/10/18 07:00 MCHC 32.0 g/dl (32.0-36.0) 01/10/18 07:00 RDW 16.5 % (11.6-15.6) H 01/10/18 07:00 Plt Count 330 K/MM3 (134-434) D 01/10/18 07:00 MPV 7.8 fl (7.5-11.1) 01/10/18 07:00 Absolute Neuts (auto) 5.2 K/mm3 (1.5-8.0) 01/10/18 07:00 Neutrophils % 48.4 % (42.8-82.8) D 01/10/18 07:00 Lymphocytes % 40.3 % (8-40) H D 01/10/18 07:00 Monocytes % 7.0 % (3.8-10.2) 01/10/18 07:00 Eosinophils % 3.8 % (0-4.5) D 01/10/18 07:00 Basophils % 0.5 % (0-2.0) 01/10/18 07:00 Nucleated RBC % 0 % (0-0) 01/10/18 07:00 Assessment/Plan Status post Anemia Consider blood transfusion
[2018-01-10] MEDS: PRENATAL VITAMINS W/ FOLIC ACID TABLET (FP) PO SCH (10:32)
[2018-01-10] MEDS: FERROUS SO4 325 MG TABLET (FP) PO SCH ×2 (10:32→22:00)
[2018-01-10] MEDS: SENNOSIDES/DOCUSATE COMBO (SENNA PLUS) TABLET (UD) PO PRN (22:00)
[2018-01-11] MEDS: SIMETHICONE 80 MG TAB.CHEW (FP) PO PRN ×2 (05:42→14:28)
[2018-01-11] MEDS: ACETAMINOPHEN 325 MG TABLET (FP) PO PRN ×2 (05:42→14:29)
[2018-01-11] MEDS: oxyCODONE HCL 5 MG TABLET PO PRN ×2 (05:42→09:27)
[2018-01-11] MEDS: IBUPROFEN 600 MG TABLET (FP) PO PRN ×3 (06:12→14:28)
[2018-01-11 08:55] LABS: HEMATOCRIT 28.3 % (32.4-45.2); HEMOGLOBIN 9.3 GM/dL (10.7-15.3); MCH 25.4 pg (25.7-33.7); MCHC 32.8 g/dl (32.0-36.0); MEAN CELL VOLUME 77.6 fl (80-96); MEAN PLT VOLUME 7.2 fl (7.5-11.1); PLATELET COUNT 346 K/MM3 (134-434); RBC 3.64 M/mm3 (3.60-5.2); RDW 17.1 % (11.6-15.6)
[2018-01-11] MEDS: FERROUS SO4 325 MG TABLET (FP) PO SCH (09:26)
[2018-01-11] MEDS: PRENATAL VITAMINS W/ FOLIC ACID TABLET (FP) PO SCH (10:00)
[2018-01-11 10:39] VITALS: BP 106/65; PULSE 75; TEMP 98.8
--- NOTE | 2018-01-11 10:58 | DS ---
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 Vital Signs: Vital Signs Temperature 98.8 F 01/11/18 10:00 Pulse Rate 75 01/11/18 10:00 Respiratory Rate 18 01/11/18 10:00 Blood Pressure 106/65 01/11/18 10:00 O2 Sat by Pulse Oximetry (%) 99 01/07/18 10:00 Constitutional: Yes: Well Nourished HENT: Yes: WNL Neck: Yes: Supple Cardiovascular: Yes: Regular Rate and Rhythm Respiratory: Yes: Regular Gastrointestinal: Yes: Normal Bowel Sounds Vaginal Exam: Yes: Normal Cervix: Yes: Normal Uterus: Yes: Normal Wound/Incision: Yes: Clean/Dry Neurological: Yes: Alert, Oriented ...Motor Strength: WNL Psychiatric: Yes: Alert, Oriented Labs: CBC, BMP 01/11/18 08:39 01/06/18 21:45 Delivery - Delivery Section: Primary, Low Flap Transverse (Indication, 39.6 weeks Failure To Progress in Labor) Type of Anesthesia: Spinal Episiotomy/Laceration: None EBL (cc): 1,000 (Noonan out put 350 ml caitlin color urine ) Delivery, Single - Stages of Labor Date 1st Stage Initiatied: 01/06/18 Time 1st Stage Initiated: 20:00 Date of Delivery: 01/07/18 Time of Delivery: 07:33 Time Placenta Delivered: 07:34 Placenta: Yes: Manual Removal, Uterine Exploration - 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 Present: Yes Name: Hannah Hylton Gender: Female Weight: 8 lb 2 oz Position: Right, OP Total Hours ROM (Hrs/Mins): 12/4 - 1 Minute Total Score: 9 5 Minutes Total Score: 9 - [place] Feeding Plan Initial Plan: Elected not to breastfeed exclusively throughout hospitalization Discharge Summary Reason For Visit: LABOR Current Active Problems Anemia (Acute) delivery delivered (Acute) Encounter for visit (Acute) Failure to progress in first stage of labor (Acute) History of inadequate care (Acute) with 39 completed weeks gestation (Acute) SROM (spontaneous rupture of membranes) (Acute) Procedures: Principal: Hospital Course: Patient developed severe anemia . She was advised to take blood transfusion and she finally accepted. Condition: Stable - Instructions Diet, Activity, Other Instructions: Post Instructions DIET: Continue good diet high in protein, calcium, and iron rich foods. Drink at least eight (8) glasses of water daily in addition to other fluids. ct Regular diet MEDICATIONS: Continue vitamins and iron as previously directed. Motrin and Tylenol may be taken for minor discomfort. ACTIVITY: Mild to moderate exercise may be started in two (2) weeks. Take frequent rest periods. Resume normal activity after six (6) week check up. WOUND CARE OF OPERATIVE SITE: Continue use of perineal bottle until vaginal discharge stops. Keep area clean. Shower daily. Keep abdominal wound dry. Report any drainage or redness to physician. Tub baths, tampons and douches are not permitted for [address] Breast feeding & or Bottle feeding BREAST CARE: (For those that are not breast feeding): If engorgement occurs: Wear tight fitting bra. Take Tylenol or Motrin for pain. Apply cold packs (ice in bags to each breast ) FAMILY PLANNING: There are many control alternatives to pursue and they should be discussed at your first office visit. You may resume sexual activity after your six (6) week check up. (Remember, breast feeding is not a contraceptive) NEXT PHYSICIAN APPOINTMENT: Be certain to call for a one (1 ) week appointment, unless otherwise directed. REPEAT CBC In the Clininc in the clinic after4 weeks Call Clinic or got to Emergency Dept if you have any of the following: Heavy vaginal bleeding Painful urination Leg pain Unusual odor noted to vaginal bleeding High fever Red streaking noted on breast Referrals: Myriam Clark MD [Staff Physician] - - Home Medications Comprehensive Discharge Medication List: Ambulatory Orders Vit,Calc76/Iron/Folic [Pnv 29-1 Tablet] 1 tab PO DAILY 01/06/18 Acetaminophen [Tylenol .Regular Strength -] 500 mg PO Q4H PRN #30 tablet Ferrous Sulfate [Feosol] 325 mg PO BID #60 tab 01/08/18 Ibuprofen [Motrin -] 600 mg PO Q4H PRN #30 tablet 01/08/18 Vitamins (Sjr) - 1 tab PO DAILY #30 tablet 01/08/18 Sennosides/Docusate Sodium [Pericolace -] 2 tablet PO HS PRN #60 tablet
[2018-01-11] MEDS: OXYTOCIN 20 UNITS in 0.9% NS 20 UNIT/1,000 ML INFUS.BAG IV SCH (13:52)
--- NOTE | 2018-01-13 09:22 | PATH ---
Surgical Pathology Report Patient Name: [facility]. Rec. 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 Specimen(s) Received PLACENTA Clinical History , 2014, cholecystectomy 2015 No care 39.5 weeks-failure to progress Final Diagnosis PLACENTA: THIRD TRIMESTER PLACENTA. TRIVASCULAR CORD. MEMBRANES WITH NO DIAGNOSTIC ABNORMALITIES. Electronically Signed Juan Miguel Mares M.D. Gross Description The specimen is received fresh labeled placenta and is a 529 gram, 21.0 x 15.5 x 2.3 cm. placenta with attached membranes and umbilical cord. The attached membranes are phillips, translucent with focal opacities and insert marginally. The umbilical cord measures 13 cm. in length and averages 1.2 cm. in diameter. The cord inserts eccentrically, 3.5 cm. to the nearest margin. No true knots or strictures are identified. Cut surface of the umbilical cord reveals 3 vessels. The surface is gutierrez-blue with minimal fibrin deposition and appropriate caliber vessels. The maternal surface is red-brown with focal defects. Sectioning reveals red-brown, spongy parenchyma. No lesions are identified. 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 01/09/2018 [facility]01/09/2018
== END 2018-01-11 14:40 | disposition home or self-care (01) | DRG 540 ==
LOC: JLDR 20:00 → J3W 01-07 10:30
PROVIDERS: ADMIT Obstetrics & Gynecology; ATTEND Obstetrics & Gynecology
PROC: 10D00Z1 Extraction of Products of Conception, Low, Open Approach (ICD-10-PCS; principal; 2018-01-07)
DX: O62.0 Primary inadequate contractions (principal); O99.02 Anemia complicating childbirth; D64.9 Anemia, unspecified; Z3A.39 39 weeks gestation of pregnancy; Z37.0 Single live birth
CPT/HCPCS: 36415; 36430; 36511; 36600; 71046-TC-FY; 80048; 82803; 85025; 85027; 86850; 86900; 86901; 86922; 88307-TC; 90686; 90715; 94010; G0008; J0131; P9038; P9058

== ENCOUNTER 2018-01-14 18:34 | Observation (INO) | payer OTHER ==
[2018-01-14 20:30] LABS: BASO % 0.7 % (0-2.0); EOS % 4.9 % (0-4.5); HEMATOCRIT 29.6 % (32.4-45.2); HEMOGLOBIN 9.5 GM/dL (10.7-15.3); MCH 25.6 pg (25.7-33.7); MEAN CELL VOLUME 80.1 fl (80-96); MEAN PLT VOLUME 7.3 fl (7.5-11.1); MONO % 7.7 % (3.8-10.2); NEUT % 50.7 % (42.8-82.8); PLATELET COUNT 489 K/MM3 (134-434); RDW 18.5 % (11.6-15.6); WHITE BLOOD COUNT 10.4 K/mm3 (4.0-10.0)
--- NOTE | 2018-01-14 20:30 | PDOC ---
History of Present Illness <Tyrone Bragg - Last Filed: 01/14/18 21:36> - History of Present Illness Initial Comments: 01/14/18 20:27 The patient is a 32 year old female with a past medical history of anemia requiring transfusion who presents to the emergency department with palpitations , weakness, and bilateral lower extremity swelling. Pt states that her symptoms started after her 1 week ago. She notes progressively worsening bilateral lower extremity swelling without calf tenderness. Pt denies chest pain but endorses mild orthopnea. Pt also states that when she goes to sleep, she feels her heart pounding in her chest. Of note, pt states that she required transfusions due to anemia after her C- section on 01/07. At that time her hemoglobin was 9.3 then dropped to 6.3 after surgery. She received 2 units of blood and it raised to 9.3.(last checked on ) She denies recent fevers, chills, headache or dizziness. She denies recent nausea, vomit, diarrhea or constipation. She denies recent dysuria, frequency, urgency or hematuria. Allergies: NKA Past surgical history: x1. Social history: Nonsmoker. Denies EtOH use and recreational drug use. 01/14/18 22:13 <Otto Islas - Last Filed: 01/14/18 22:23> - General Chief Complaint: Weakness Stated Complaint: Syncope/Near Syncope Time Seen by Provider: 01/14/18 19:58 Past History <Tyrone Bragg - Last Filed: 01/14/18 21:36> - Past Medical History Asthma: No Cancer: No Cardiac Disorders: No COPD: No Diabetes: No HTN: No Seizures: No Thyroid Disease: No - Suicide/Smoking/Psychosocial Hx Smoking History: Never smoked Have you smoked in the past 12 months: No Hx Alcohol Use: No Drug/Substance Use Hx: No Hx Substance Use Treatment: No <Otto Islas - Last Filed: 01/14/18 22:23> - Past Medical History Allergies/Adverse Reactions: Allergies Allergy/AdvReac Type Severity Reaction Status Date / Time No Known Allergies Allergy Verified 01/06/18 22:59 Home Medications: Ambulatory Orders Vit,Calc76/Iron/Folic [Pnv 29-1 Tablet] 1 tab PO DAILY 01/06/18 Acetaminophen [Tylenol .Regular Strength -] 500 mg PO Q4H PRN #30 tablet Ferrous Sulfate [Feosol] 325 mg PO BID #60 tab 01/08/18 Ibuprofen [Motrin -] 600 mg PO Q4H PRN #30 tablet 01/08/18 Vitamins (Sjr) - 1 tab PO DAILY #30 tablet 01/08/18 Sennosides/Docusate Sodium [Pericolace -] 2 tablet PO HS PRN #60 tablet Ferrous Sulfate [Feosol] 325 mg PO BID #90 tablet 01/11/18 Review of Systems - Review of Systems Comments:: 01/14/18 20:28 GENERAL/CONSTITUTIONAL: No fever or chills. + weakness. HEAD, EYES, EARS, NOSE AND THROAT: No change in vision. No ear pain or discharge. No sore throat. + CARDIOVASCULAR: Palpitations. No chest pain or shortness of breath. RESPIRATORY: No cough, wheezing, or hemoptysis. GASTROINTESTINAL: No nausea, vomiting, diarrhea or constipation. GENITOURINARY: No dysuria, frequency, or change in urination. + MUSCULOSKELETAL: Bilateral lower extremity swelling. No joint or muscle pain. No neck or back pain. SKIN: No rash NEUROLOGIC: No headache, vertigo, loss of consciousness, or change in strength/ sensation. ENDOCRINE: No increased thirst. No abnormal weight change. HEMATOLOGIC/LYMPHATIC: No anemia, easy bleeding, or history of blood clots. ALLERGIC/IMMUNOLOGIC: No hives or skin allergy. <Otto Islas - Last Filed: 01/14/18 22:23> *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 - Vital Signs Last Vital Signs Temp Pulse Resp BP Pulse Ox 99.4 F 66 16 121/67 99 01/14/18 18:40 01/14/18 18:40 01/14/18 18:40 01/14/18 18:40 01/14/18 18:40 <Tyrone Bragg - Last Filed: 01/14/18 21:36> - Vital Signs Last Vital Signs Temp Pulse Resp BP Pulse Ox 99.4 F 66 16 121/67 99 01/14/18 18:40 01/14/18 18:40 01/14/18 18:40 01/14/18 18:40 01/14/18 18:40 - 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 Comments: 01/14/18 20:29 GENERAL: Awake, alert, and fully oriented, in no acute distress. HEAD: No signs of trauma EYES: PERRLA, EOMI, sclera anicteric, conjunctiva clear ENT: Auricles normal inspection, hearing grossly normal, nares patent, oropharynx clear without exudates. Moist mucosa NECK: Nontender, no stepoffs, Normal ROM, supple, no lymphadenopathy, JVD, or masses LUNGS: Breath sounds equal, clear to auscultation bilaterally. No wheezes, and no crackles HEART: Regular rate and rhythm, normal S1 and S2, no murmurs, rubs or gallops ABDOMEN: + low transverse incision well healing, no erythema or induration, Soft, nontender, normoactive bowel sounds. No guarding, no rebound. No masses EXTREMITIES: +2 PE BLE NEUROLOGICAL: Cranial nerves II through XII intact. 5/5 strength and sensation in all extremities, Normal speech, normal gait, normal cerebellar function SKIN: Warm, Dry, normal turgor, no rashes or lesions noted. <Ou,Otto - Last Filed: 01/14/18 22:23> Heart Score/ECG Review - History History: Slightly suspicious - Electrocardiogram EKG: Normal - Age Age: </= 45 - Risk Factors Based on the list above the patient has:: No risk factors known - Troponin Troponin: </= normal limit - Score Heart Score - Total: 0 - ECG Impressions Comment:: 01/14/18 21:04 NSR, no SIDNEY/STDs, no TWIs, axis wnl, intervals wnl, rate 60 <Ou,Otto - Last Filed: 01/14/18 22:23> ED Treatment Course - LABORATORY CBC & Chemistry Diagram: 01/14/18 20:13 01/14/18 20:13 - ADDITIONAL ORDERS Additional order review: Laboratory Results 01/14/18 01/14/18 01/14/18 20:55 20:13 20:13 PT with INR 12.70 INR 1.12 H PTT (Actin FS) 28.2 Sodium 144 Potassium 4.3 Chloride 111 H Carbon Dioxide 24 Anion Gap 10 BUN 9 Creatinine 0.5 L Creat Clearance w eGFR > 60 Random Glucose 99 Calcium 8.7 Total Bilirubin 0.2 AST 28 ALT 41 Alkaline Phosphatase 243 H Creatine Kinase Troponin I B-Natriuretic Peptide Total Protein 6.6 Albumin 2.4 L Urine Color Straw Urine Appearance Clear Urine pH 6.0 Ur Specific [place] 1.009 Urine Protein Negative Urine Glucose (UA) Negative Urine Ketones Negative Urine Blood 3+ H Urine Nitrite Negative Urine Bilirubin Negative Urine Urobilinogen Negative Ur Leukocyte Esterase 2+ H 01/14/18 20:13 PT with INR INR PTT (Actin FS) Sodium Potassium Chloride Carbon Dioxide Anion Gap BUN Creatinine Creat Clearance w eGFR Random Glucose Calcium Total Bilirubin AST ALT Alkaline Phosphatase Creatine Kinase 69 Troponin I < 0.02 B-Natriuretic Peptide 511.0 H Total Protein Albumin Urine Color Urine Appearance Urine pH Ur Specific [place] Urine Protein Urine Glucose (UA) Urine Ketones Urine Blood Urine Nitrite Urine Bilirubin Urine Urobilinogen Ur Leukocyte Esterase 01/14/18 20:13 RBC 3.70 MCV 80.1 MCHC 32.0 RDW 18.5 H MPV 7.3 L Neutrophils % 50.7 Lymphocytes % 36.0 Monocytes % 7.7 Eosinophils % 4.9 H Basophils % 0.7 <Tyrone Bragg - Last Filed: 01/14/18 21:36> - LABORATORY CBC & Chemistry Diagram: 01/14/18 20:13 01/14/18 20:13 - RADIOLOGY Radiology Studies Ordered: Category Date Time Status CHEST PA & LAT [RAD] Stat Radiology 01/14/18 20:06 Ordered DUPLEX VASCUL US-2LEGS [US] Stat Ultrasound 01/14/18 20:06 Ordered <Otto Islas - Last Filed: 01/14/18 22:23> Medical Decision Making - Medical Decision Making 01/14/18 21:[address] 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 01/14/18 21:[address] Cano, case was discussed. <Tyrone Bragg - Last Filed: 01/14/18 21:36> - Medical Decision Making 01/14/18 20:30 32 F with weakness, palpitations, and BLE swelling. Pt with no SOB or chest pain but will evaluate for heart failure. Swelling appears symmetric but will also evaluate for DVT. Pt with normal vitals at this time. Will work up for infectious process as pt has low-grade temp 99.4 in ED. - Labs, trop, BNP - CXR, UA - EKG - BLE dopplers 01/14/18 21:33 BNP elevated to 500 CXR with cardiomegaly Concerning for possible peripartum cardiomyopathy - Cards consult placed 01/14/18 21:[address] Cano, who agrees with plan to admit to tele obs and order echo. 01/14/18 22:23 Admitted to hospitalist. <Otto Islas - Last Filed: 01/14/18 22:23> *DC/Admit/Observation/Transfer - Attestations Scribe Attestion: 01/14/18 21:25 Documentation prepared by Tyrone Bragg, acting as medical records coordinator for Otto Islas MD. <Tyrone Bragg - Last Filed: 01/14/18 21:36> - Discharge Dispostion Decision to Admit order: Yes - Attestations Physician Attestion: 01/14/18 22:23 I, Dr. Otto Islas MD, attest that this document has been prepared under my direction and personally reviewed by me in its entirety. I further attest, that it accurately reflects all work, treatment, procedures and medical decision -making performed by me. <Otto Islas - Last Filed: 01/14/18 22:23> Diagnosis at time of Disposition: Peripartum cardiomyopathy
[2018-01-14 20:42] LABS: INR 1.12 (0.83-1.09); PROTHROMBIN TIME (PATIENT) 12.7 SEC (9.7-13.0)
[2018-01-14 20:45] LABS: ACTIVATED PTT 28.2 SECONDS (25.2-36.5)
[2018-01-14 21:01] LABS: ALBUMIN 2.4 g/dl (3.4-5.0); ALK PHOS 243 U/L (45-117); ANION GAP 10 MMOL/L (8-16); BILIRUBIN,TOTAL 0.2 mg/dL (0.2-1); BLOOD UREA NITROGEN 9 mg/dL (7-18); CALCIUM 8.7 mg/dL (8.5-10.1); CHLORIDE 111 mmol/L (98-107); CO2 24 mmol/L (21-32); CREATININE 0.5 mg/dL (0.55-1.3); GLUCOSE,RANDOM 99 mg/dL (74-106); POTASSIUM 4.3 mmol/L (3.5-5.1); SGOT/AST 28 U/L (15-37); SGPT/ALT 41 U/L (13-61); SODIUM 144 mmol/L (136-145); TOT PROT 6.6 g/dl (6.4-8.2)
[2018-01-14 21:12] LABS: URINE APPEARANCE CLEAR; URINE BILIRUBIN NEGATIVE (<2.0 mg/dL); URINE COLOR STRAW; URINE GLUCOSE (UA) NEGATIVE (NEGATIVE); URINE KETONE NEGATIVE (NEGATIVE); URINE NITRITE NEGATIVE (NEGATIVE); URINE PROTEIN NEGATIVE (NEGATIVE); URINE UROBILINOGEN NEGATIVE mg/dL (0.2-1.0)
[2018-01-14 21:14] LABS: URINE LEUK ESTERASE 2+ (NEGATIVE)
[2018-01-14 21:17] LABS: EPI CELLS RARE /HPF (FEW); URINE BACTERIA RARE /hpf (NONE SEEN); URINE MUCUS RARE
--- NOTE | 2018-01-14 22:33 | PN ---
Teaching Attending Note Name of Resident: Deborah Staton ATTENDING PHYSICIAN STATEMENT I saw and evaluated the patient. I reviewed the resident's note and discussed the case with the resident. I agree with the resident's findings and plan as documented. SUBJECTIVE: 32 y/o F presented to ED c/o b/l lower extremity swelling and palpitations and weakness. Patient recently had baby via with hgb drop by 3 requiring transfusion of 2 U. was without any complications as per patient. PAtient reports flying from [place] to [place] in last trimester of OBJECTIVE: Vital Signs Temperature 99.4 F 01/14/18 18:40 Pulse Rate 66 01/14/18 18:40 Respiratory Rate 16 01/14/18 18:40 Blood Pressure 121/67 01/14/18 18:40 O2 Sat by Pulse Oximetry (%) 99 01/14/18 18:40 GEN:Alert and Oriented times 3 HEENT:PERRLA, EOMI, MMM CVS:RRR, S1, S2 LUNGS:CTA ABD:Soft, NT, ND, BS+ Ext: Swelling Neuro:CN2-12 intact CBCD WBC 10.4 K/mm3 (4.0-10.0) H 01/14/18 20:13 RBC 3.70 M/mm3 (3.60-5.2) 01/14/18 20:13 Hgb 9.5 GM/dL (10.7-15.3) L 01/14/18 20:13 Hct 29.6 % (32.4-45.2) L 01/14/18 20:13 MCV 80.1 fl (80-96) 01/14/18 20:13 MCHC 32.0 g/dl (32.0-36.0) 01/14/18 20:13 RDW 18.5 % (11.6-15.6) H 01/14/18 20:13 Plt Count 489 K/MM3 (134-434) H D 01/14/18 20:13 MPV 7.3 fl (7.5-11.1) L 01/14/18 20:13 CMP Sodium 144 mmol/L (136-145) 01/14/18 20:13 Potassium 4.3 mmol/L (3.5-5.1) 01/14/18 20:13 Chloride 111 mmol/L (98-107) H 01/14/18 20:13 Carbon Dioxide 24 mmol/L (21-32) 01/14/18 20:13 Anion Gap 10 MMOL/L (8-16) 01/14/18 20:13 BUN 9 mg/dL (7-18) 01/14/18 20:13 Creatinine 0.5 mg/dL (0.55-1.3) L 01/14/18 20:13 Creat Clearance w eGFR > 60 (>60) 01/14/18 20:13 Random Glucose 99 mg/dL (74-106) 01/14/18 20:13 Calcium 8.7 mg/dL (8.5-10.1) 01/14/18 20:13 Total Bilirubin 0.2 mg/dL (0.2-1) 01/14/18 20:13 AST 28 U/L (15-37) 01/14/18 20:13 ALT 41 U/L (13-61) 01/14/18 20:13 Alkaline Phosphatase 243 U/L (45-117) H 01/14/18 20:13 Total Protein 6.6 g/dl (6.4-8.2) 01/14/18 20:13 Albumin 2.4 g/dl (3.4-5.0) L 01/14/18 20:13 CARDIAC ENZYMES Creatine Kinase 69 IU/L (26-192) 01/14/18 20:13 Troponin I < 0.02 ng/ml (0.00-0.05) 01/14/18 20:13 ASSESSMENT AND PLAN: R/O Peripartum Cardiomyopathy vs CHF 2L Oxygen via NC ECHO Consider Cardiology consult Admit to telemetry for monitoring Consider MEDICAL BILLING ASSISTANT consult DVT prophylaxis Problem List - Problems (1) Peripartum cardiomyopathy Code(s): O90.3 - PERIPARTUM CARDIOMYOPATHY (2) Anemia Code(s): D64.9 - ANEMIA, UNSPECIFIED
--- NOTE | 2018-01-15 02:41 | HP ---
CHIEF COMPLAINT: palpitations and weakness PCP: HISTORY OF PRESENT ILLNESS: 32F w/ pmhx of anemia (recently requiring transfusion after performed on 01/07) presents today with 1 week hx of palpitations and weakness. Pt reports after , she has been experiencing intermittent palpitations and decided to come to the hospital after measuring her heart rate at 60. She states that she has never had palpitations or a cardiac history before. She reports having these palpitations at any time and is unrelated to exertion. She feels these episodes especially when laying down in bed. Additionally, she admits to bilateral lower leg swelling after her . Denies f/c, n/v, sob , chest pain, dizziness, fainting episodes, hadley. She does admit to headaches. Pt reports taking Ibuprofen and Tylenol at home. Of note, pt had a prior to recently; her Hgb was 9.3 and subsequently dropped to 6.3 after the C-s. She was transfused 2U of blood after which her Hgb increased to 9.3. ER course was notable for: (1) Hgb 9.5, U/A showed 3+ blood and 2+ LE, Alk P 243 (2) EKG showed NSR, no evidence of ischemia. B/L LE dopplers neg for DVT; CXR showed borderline cardiomegaly w/o evidence of acute lung disease (3) Echo and cardio consult ordered Recent Travel: Pt recently came from [facility] on Dec 20, 2018. 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 Family History: Mother: HTN, DM Allergies No Known Allergies Allergy (Verified 01/06/18 22:59) HOME MEDICATIONS: Home Medications Medication Instructions Recorded Vit,Calc76/Iron/Folic 1 tab PO DAILY 01/06/18 [Pnv 29-1 Tablet] Acetaminophen [Tylenol .Regular 500 mg PO Q4H PRN #30 tablet 01/08/18 Strength -] Ferrous Sulfate [Feosol] 325 mg PO BID #60 tab 01/08/18 Ibuprofen [Motrin -] 600 mg PO Q4H PRN #30 tablet 01/08/18 Vitamins (Sjr) - 1 tab PO DAILY #30 tablet 01/08/18 Sennosides/Docusate Sodium 2 tablet PO HS PRN #60 tablet 01/08/18 [Pericolace -] Ferrous Sulfate [Feosol] 325 mg PO BID #90 tablet 01/11/18 REVIEW OF SYSTEMS CONSTITUTIONAL: +generalized weakness Absent: fever, chills, diaphoresis, malaise, loss of appetite, weight change HEENT: Absent: rhinorrhea, nasal congestion, throat pain, throat swelling, difficulty swallowing, mouth swelling, ear pain, eye pain, visual changes CARDIOVASCULAR: +palpitations Absent: chest pain, syncope, , irregular heart rate, lightheadedness, peripheral edema RESPIRATORY: Absent: cough, shortness of breath, dyspnea with exertion, orthopnea, wheezing, stridor, hemoptysis GASTROINTESTINAL: Absent: abdominal pain, abdominal distension, nausea, vomiting, diarrhea, constipation GENITOURINARY: Absent: dysuria, frequency, urgency, hesitancy, hematuria, flank pain, genital pain MUSCULOSKELETAL: +b/l LE swelling Absent: myalgia, arthralgia, joint swelling, back pain, neck pain SKIN: Absent: rash, itching, pallor HEMATOLOGIC/IMMUNOLOGIC: Absent: easy bleeding, easy bruising, lymphadenopathy, frequent infections ENDOCRINE: Absent: unexplained weight gain, unexplained weight loss, heat intolerance, cold intolerance NEUROLOGIC: +headache Absent: focal weakness or paresthesias, dizziness, unsteady gait, seizure, mental status changes, bladder or bowel incontinence PSYCHIATRIC: Absent: anxiety, depression, suicidal or homicidal ideation, hallucinations. PHYSICAL EXAMINATION Vital Signs - 24 hr 01/14/18 01/15/18 18:40 01:17 Temperature 99.4 F 98.8 F Pulse Rate 66 Pulse Rate [ 67 Right] Respiratory 16 18 Rate Blood Pressure 121/67 Blood Pressure 123/66 [Right Arm] O2 Sat by Pulse 99 97 Oximetry (%) GENERAL: AAOx3. NAD. Well-appearing female. HEENT: Normal with no signs of trauma. SILVANO. EOMI. Pale conjunctiva. Non- icteric sclera. Ears normal, nares patent. Moist mucous membranes. NECK: Supple, no LAD/JVD. LUNGS: CTA B/L. No w/r/r noted. Symmetric chest rise. HEART: RRR. Normal S1, S2. No m/r/g noted. ABDOMEN: Soft, NT/ND. Normactive BS in all 4Q's. No masses or bruits noted. MUSCULOSKELETAL: Moves all extremities. UPPER EXTREMITIES: 2+ pulses, warm, well-perfused. No cyanosis. No clubbing. No peripheral edema. 5/5 muscle strength b/l extremities. 3+ pitting edema. LOWER EXTREMITIES: 2+ pulses, warm, well-perfused. No calf tenderness. No peripheral edema. 5/5 muscle strength b/l extremities. 3+ pitting edema. NEUROLOGICAL: Cranial nerves II-XII intact. Normal speech. Normal gait. PSYCHIATRIC: Cooperative. Good eye contact. Appropriate mood and affect. SKIN: Warm, dry, normal turgor, no rashes or lesions noted, normal capillary refill. Laboratory Results - last 24 hr 01/14/18 01/14/18 01/14/18 20:13 20:13 20:13 WBC 10.4 H RBC 3.70 Hgb 9.5 L Hct 29.6 L MCV 80.1 MCH 25.6 L MCHC 32.0 RDW 18.5 H Plt Count 489 H D MPV 7.3 L Absolute Neuts (auto) 5.3 Neutrophils % 50.7 Lymphocytes % 36.0 Monocytes % 7.7 Eosinophils % 4.9 H Basophils % 0.7 Nucleated RBC % 0 PT with INR 12.70 INR 1.12 H PTT (Actin FS) 28.2 Sodium Potassium Chloride Carbon Dioxide Anion Gap BUN Creatinine Creat Clearance w eGFR Random Glucose Calcium Total Bilirubin AST ALT Alkaline Phosphatase Creatine Kinase 69 Troponin I < 0.02 B-Natriuretic Peptide 511.0 H Total Protein Albumin Urine Color Urine Appearance Urine pH Ur Specific [place] Urine Protein Urine Glucose (UA) Urine Ketones Urine Blood Urine Nitrite Urine Bilirubin Urine Urobilinogen Ur Leukocyte Esterase Urine WBC (Auto) Urine RBC (Auto) Ur Epithelial Cells Urine Bacteria Urine Mucus Blood Type Antibody Screen 01/14/18 01/14/18 01/14/18 20:13 20:13 20:55 WBC RBC Hgb Hct MCV MCH MCHC RDW Plt Count MPV Absolute Neuts (auto) Neutrophils % Lymphocytes % Monocytes % Eosinophils % Basophils % Nucleated RBC % PT with INR INR PTT (Actin FS) Sodium 144 Potassium 4.3 Chloride 111 H Carbon Dioxide 24 Anion Gap 10 BUN 9 Creatinine 0.5 L Creat Clearance w eGFR > 60 Random Glucose 99 Calcium 8.7 Total Bilirubin 0.2 AST 28 ALT 41 Alkaline Phosphatase 243 H Creatine Kinase Troponin I B-Natriuretic Peptide Total Protein 6.6 Albumin 2.4 L Urine Color Straw Urine Appearance Clear Urine pH 6.0 Ur Specific [place] 1.009 Urine Protein Negative Urine Glucose (UA) Negative Urine Ketones Negative Urine Blood 3+ H Urine Nitrite Negative Urine Bilirubin Negative Urine Urobilinogen Negative Ur Leukocyte Esterase 2+ H Urine WBC (Auto) 45 Urine RBC (Auto) 26 Ur Epithelial Cells Rare Urine Bacteria Rare Urine Mucus Rare Blood Type A POSITIVE Antibody Screen Negative ASSESSMENT/PLAN: 32F w/ pmhx of recent anemia requiring transfusion after performed on 01/07 presents today with 1 week hx of palpitations and weakness admitted for peripartum cardiomyopathy. #Palpitations, likely peripartum cardiomyopathy, r/o heart failure; CXR showed cardiomegaly. -Pt has no complaints of chest pain or shortness of breath, however, she has b/ l LE pitting edema, although was recently . Echo ordered to r/o heart failure. -Monitor patient on tele obs -f/u cardio recs -consider cytology laboratory manager consult #Hx of anemia; Pt asymptomatic. -Hgb currently stable at 9.5 -repeat CBC in AM #DVT ppx -SCDs #FEN -no IVf needed -BMP in AM -regular diet dispo -admit to tele obs Visit type - Emergency Visit Emergency Visit: Yes ED Registration Date: 01/14/18 Care time: The patient presented to the Emergency Department on the above date and was hospitalized for further evaluation of their emergent condition. - New Patient This patient is new to me today: Yes Date on this admission: 01/15/18 - Critical Care Critical Care patient: No Hospitalist Screening - Colonoscopy Questionnaire Colonoscopy Questionnaire: Colonoscopy Questionnaire - Patient: 50 - 75 years old and never had a screening colonoscopy: Unknown History of colon or rectal polyps, or CA: Unknown History of IBD, Crohn's disease or UC: Unknown History of abdominal radiation therapy as a child: Unknown - Relative: 1 with colon or rectal CA, or polyps at age 60 or younger: Unknown Colon or rectal CA diagnosed at age 45 or younger: Unknown Multiple relatives with colon or rectal CA: Unknown - Outcome: Screening Result: Negative Screen
[2018-01-15 08:17] LABS: HEMATOCRIT 28.5 % (32.4-45.2); HEMOGLOBIN 9.1 GM/dL (10.7-15.3); MCH 25.3 pg (25.7-33.7); MCHC 32.1 g/dl (32.0-36.0); MEAN CELL VOLUME 78.9 fl (80-96); MEAN PLT VOLUME 7.3 fl (7.5-11.1); PLATELET COUNT 437 K/MM3 (134-434); RBC 3.61 M/mm3 (3.60-5.2); RDW 18.6 % (11.6-15.6); WHITE BLOOD COUNT 10.3 K/mm3 (4.0-10.0)
[2018-01-15 08:44] LABS: ANION GAP 10 MMOL/L (8-16); BLOOD UREA NITROGEN 7 mg/dL (7-18); CALCIUM 8.7 mg/dL (8.5-10.1); CHLORIDE 110 mmol/L (98-107); CO2 23 mmol/L (21-32); CREATININE 0.5 mg/dL (0.55-1.3); GLUCOSE,RANDOM 109 mg/dL (74-106); POTASSIUM 4.7 mmol/L (3.5-5.1); SODIUM 144 mmol/L (136-145)
--- NOTE | 2018-01-15 09:03 | PN ---
Teaching Attending Note Name of Resident: Paula Zapata ATTENDING PHYSICIAN STATEMENT I saw and evaluated the patient. I reviewed the resident's note and discussed the case with the resident. I agree with the resident's findings and plan as documented. SUBJECTIVE: Patient is comfortable with no acute distress. OBJECTIVE: Vital Signs Temperature 98.7 F 01/15/18 06:00 Pulse Rate 82 01/15/18 06:00 Respiratory Rate 19 01/15/18 06:00 Blood Pressure 153/76 01/15/18 06:00 O2 Sat by Pulse Oximetry (%) 98 01/15/18 05:00 GENERAL: AAOx3. NAD. Well-appearing female. HEENT: Normal with no signs of trauma. SILVANO. EOMI. Non-icteric sclera. Ears normal, .Moist mucous membranes. NECK: Supple, no JVD. LUNGS: CTA B/L. No wheezing rales or rhonchi HEART: RRR. Normal S1, S2. no gallop or murmur noted ABDOMEN: Soft, NT/ND. Normactive BS in all 4Q's. No masses or bruits noted. EXTREMITIES: 2+ pulses, warm, well-perfused. No cyanosis. No clubbing. No peripheral edema. b/l extremities. 2+ pitting edema. NEUROLOGICAL: Cranial nerves II-XII intact. Normal speech. Normal gait. 5/5 muscle strength PSYCHIATRIC: Cooperative. Good eye contact. Appropriate mood and affect. SKIN: Warm, dry, normal turgor, no rashes or lesions noted, normal capillary refill. CBCD WBC 10.3 K/mm3 (4.0-10.0) H 01/15/18 07:00 RBC 3.61 M/mm3 (3.60-5.2) 01/15/18 07:00 Hgb 9.1 GM/dL (10.7-15.3) L 01/15/18 07:00 Hct 28.5 % (32.4-45.2) L 01/15/18 07:00 MCV 78.9 fl (80-96) L 01/15/18 07:00 MCHC 32.1 g/dl (32.0-36.0) 01/15/18 07:00 RDW 18.6 % (11.6-15.6) H 01/15/18 07:00 Plt Count 437 K/MM3 (134-434) H 01/15/18 07:00 MPV 7.3 fl (7.5-11.1) L 01/15/18 07:00 CMP Sodium 144 mmol/L (136-145) 01/15/18 07:00 Potassium 4.7 mmol/L (3.5-5.1) 01/15/18 07:00 Chloride 110 mmol/L (98-107) H 01/15/18 07:00 Carbon Dioxide 23 mmol/L (21-32) 01/15/18 07:00 Anion Gap 10 MMOL/L (8-16) 01/15/18 07:00 BUN 7 mg/dL (7-18) 01/15/18 07:00 Creatinine 0.5 mg/dL (0.55-1.3) L 01/15/18 07:00 Creat Clearance w eGFR > 60 (>60) 01/15/18 07:00 Random Glucose 109 mg/dL (74-106) H 01/15/18 07:00 Calcium 8.7 mg/dL (8.5-10.1) 01/15/18 07:00 Total Bilirubin 0.2 mg/dL (0.2-1) 01/14/18 20:13 AST 28 U/L (15-37) 01/14/18 20:13 ALT 41 U/L (13-61) 01/14/18 20:13 Alkaline Phosphatase 243 U/L (45-117) H 01/14/18 20:13 Total Protein 6.6 g/dl (6.4-8.2) 01/14/18 20:13 Albumin 2.4 g/dl (3.4-5.0) L 01/14/18 20:13 CARDIAC ENZYMES Creatine Kinase 69 IU/L (26-192) 01/14/18 20:13 Troponin I < 0.02 ng/ml (0.00-0.05) 01/14/18 20:13 Home Medications Medication Instructions Recorded Vit,Calc76/Iron/Folic 1 tab PO DAILY 01/06/18 [Pnv 29-1 Tablet] Acetaminophen [Tylenol .Regular 500 mg PO Q4H PRN #30 tablet 01/08/18 Strength -] Ferrous Sulfate [Feosol] 325 mg PO BID #60 tab 01/08/18 Ibuprofen [Motrin -] 600 mg PO Q4H PRN #30 tablet 01/08/18 Vitamins (Sjr) - 1 tab PO DAILY #30 tablet 01/08/18 Sennosides/Docusate Sodium 2 tablet PO HS PRN #60 tablet 01/08/18 [Pericolace -] Ferrous Sulfate [Feosol] 325 mg PO BID #90 tablet 01/11/18 Current Medications Generic Name Dose Route Start Last Admin Trade Name Freq PRN Reason Stop Dose Admin Ferrous Sulfate 325 mg 01/15/18 10:00 Feosol - PO BID NIDIA Multivit/Folic Acid/Iron 1 tab 01/15/18 10:00 Vitamins (Sjr) - PO DAILY NIDIA Senna/Docusate Sodium 2 tablet 01/15/18 09:15 Pericolace - PO HS PRN CONSTIPATION CXR: no acute lung disease, borderline cardiomegaly EKG: sinus rhythm at 60bpm, poor R wave progression, no acute st changes LE duplex: neg for DVT ASSESSMENT AND PLAN: Patient is a 32yo female presented to ED c/o b/l lower extremity swelling and palpitations and weakness. Patient recently had baby via with drop in hemoglobin requiring transfusions of 2 U. was without any complications as per patient. Patient reports flying from [place] to [place] in last trimester of at 37 weeks. # Palpitations: with no evidence of arrhythmia on monitor. HR resting in the 50s. With slow walking in the hallway HR rises to 90bpm. Echo within normal limit , will discharge the patient home. # Iron deficiency Anemia will continue iron supplement bid with Colace. Discussed with cardio. marly to discharge the patient home
[2018-01-15] MEDS ORDERED: SENNOSIDES/DOCUSATE COMBO (SENNA PLUS) TABLET (UD) PO PRN (09:15)
--- NOTE | 2018-01-15 09:35 | EKG ---
Test Reason : Blood Pressure : / mmHG Vent. Rate : 060 BPM Atrial Rate : 060 BPM P-R Int : 134 ms QRS Dur : 068 ms QT Int : 424 ms P-R-T Axes : 053 070 047 degrees QTc Int : 424 ms POOR DATA QUALITY, INTERPRETATION MAY BE ADVERSELY AFFECTED NORMAL SINUS RHYTHM CANNOT RULE OUT ANTERIOR INFARCT , AGE UNDETERMINED ABNORMAL ECG NO PREVIOUS ECGS AVAILABLE Confirmed by KARLA NUNES, CARLOS ([id number]) on 01/15/2018 9:35:15 AM Referred By: Confirmed By:CARLOS ACOSTA MD
[2018-01-15] MEDS ORDERED: FERROUS SO4 325 MG TABLET (FP) PO SCH (10:00)
[2018-01-15] MEDS ORDERED: PRENATAL VITAMINS W/ FOLIC ACID TABLET (FP) PO SCH (10:00)
--- NOTE | 2018-01-15 10:16 | CON.CARD ---
Consult Consult Specialty:: Cardiology Referred by:: Carlyn Arroyo Reason for Consultation:: Palpitations - History of Present Illness Chief Complaint: Palpitations History of Present Illness: 32 year old female with no pmhx s/p recent delivery on 01/07/18 who presents with palpitations and weakness. Suffered from anemia and required 2 units pRBC's post . Denies any past medical history. No family history of cardiac disease or sudden . Has noticed since delivery frequent palpitations described as feeling heart beat jump. Also with weakness and some mild LE edema. No chest pain or sob. No pnd, orthopnea, or syncope. Flew from [place] in last trimester. CXR: no acute lung disease, borderline cardiomegaly EKG: sinus rhythm at 60bpm, poor R wave progression, no acute st changes LE duplex: neg for DVT - History Source History Provided By: Patient, Medical Record Limitations to Obtaining History: No Limitations - Past Medical History Gastrointestinal: Yes: Constipation ...LMP Comment: currently bleeding post ...: No Psych: Yes: Other (no c/o mental illness) - Past Surgical History Past Surgical History: Yes: Cholecystectomy (kami choly 2015) - Alcohol/Substance Use Hx Alcohol Use: No History of Substance Use: reports: None - Smoking History Smoking history: Never smoked Have you smoked in the past 12 months: No Home Medications - Allergies Allergies/Adverse Reactions: Allergies Allergy/AdvReac Type Severity Reaction Status Date / Time No Known Allergies Allergy Verified 01/06/18 22:59 - Home Medications Home Medications: Ambulatory Orders Vit,Calc76/Iron/Folic [Pnv 29-1 Tablet] 1 tab PO DAILY 01/06/18 Acetaminophen [Tylenol .Regular Strength -] 500 mg PO Q4H PRN #30 tablet Ferrous Sulfate [Feosol] 325 mg PO BID #60 tab 01/08/18 Ibuprofen [Motrin -] 600 mg PO Q4H PRN #30 tablet 01/08/18 Vitamins (Sjr) - 1 tab PO DAILY #30 tablet 01/08/18 Sennosides/Docusate Sodium [Pericolace -] 2 tablet PO HS PRN #60 tablet Ferrous Sulfate [Feosol] 325 mg PO BID #90 tablet 01/11/18 Vital Signs: Vital Signs Temperature 98.7 F 09/27/18 06:00 Pulse Rate 82 01/15/18 06:00 Respiratory Rate 19 01/15/18 06:00 Blood Pressure 153/76 01/15/18 06:00 O2 Sat by Pulse Oximetry (%) 98 01/15/18 05:00 Constitutional: Yes: No Distress Neck: Yes: Supple Respiratory: Yes: CTA Bilaterally Gastrointestinal: Yes: Soft Cardiovascular: Yes: Regular Rate and Rhythm JVD: No Carotid Bruit: No PMI: Non-Displaced Heart Sounds: Yes: S1, S2 Murmur: No: Systolic Murmur Edema: LLE: Trace, RLE: Trace - Other Data Labs, Other Data: CBC, BMP 01/15/18 07:00 01/15/18 07:00 INR, PTT INR 1.12 (0.83-1.09) H 01/14/18 20:13 Troponin, BNP 01/14/18 20:13 Troponin I < 0.02 B-Natriuretic Peptide 511.0 H Troponin, BNP 01/14/18 20:13 Troponin I < 0.02 B-Natriuretic Peptide 511.0 H Imaging - Results Chest X-ray: Report Reviewed EKG: Image Reviewed Problem List - Problems (1) Palpitations Code(s): R00.2 - PALPITATIONS Assessment/Plan 32 year old female with no pmhx s/p recent delivery on 01/07/18 who presents with palpitations and weakness. Suffered from anemia and required 2 units pRBC's post . Denies any past medical history. No family history of cardiac disease or sudden . Has noticed since delivery frequent palpitations described as feeling heart beat jump. Also with weakness and some mild LE edema. No chest pain or sob. No pnd, orthopnea, or syncope. Flew from [place] in last trimester. CXR: no acute lung disease, borderline cardiomegaly EKG: sinus rhythm at 60bpm, poor R wave progression, no acute st changes LE duplex: neg for DVT 1) Palpitations. -patient in sinus rhythm on monitor and had episodes of this feeling of bouncing heart beat today and no evidence of arrhythmia on monitor. HR resting in the 50s. With slow walking in the hallway HR rises to 90bpm. f/u tft's Lytes are ok Physical exam is not very impressive for CHF but would get an echocardiogram to confirm LV size, function, and LVEF. 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 -Trend h/h and labs as per primary team. FISCAL AGENT as per primary team. -Will follow up with you.
[2018-01-15] MEDS ORDERED: CEFTRIAXONE 1 GM in DEXTROSE 5%-WATER - 100 ML IVPB SCH (10:45)
[2018-01-15] MEDS ORDERED: CEFTRIAXONE 1 GM in DEXTROSE 5%-WATER - 50 ML IVPB SCH (12:00)
[2018-01-15] MEDS ORDERED: cefTRIAXone SODIUM 1 GM VIAL ONE (12:12)
[2018-01-15] MEDS ORDERED: DEXTROSE 5%-WATER - 50 ML IVPB ONE (12:12)
--- NOTE | 2018-01-15 12:13 | ECHO ---
Name: CAITLIN WAYNE Exam:Adult Echocardiogram Study Date: 01/15/2018 09:17 AM Age: 32 yrs Reason For Study: PERIPARTUM CARDIOMYOPATHY Height: 61 in Weight: 154 lb BSA: 1.7 m2 MMode/2D Measurements & Calculations IVSd: 0.81 cm Ao root diam: 2.7 cm LVIDd: 4.5 cm LA dimension: 3.6 cm LVIDs: 2.9 cm LVPWd: 0.93 cm EDV(Teich): 91.4 ml LAV (MOD-bp): 24.5 ml ESV(Teich): 32.4 ml Doppler Measurements & Calculations MV E max beto: 141.0 cm/sec MR max beto: 343.1 cm/sec MV A max beto: 53.3 cm/sec MR max P.7 mmHg MV E/A: 2.6 MV dec time: 0.14 sec TR max beto: 280.7 cm/sec Med Peak E' Beto: 10.4 cm/sec TR max P.8 mmHg Med E/e': 13.5 Lat Peak E' Beto: 16.4 cm/sec Lat E/e': 8.6 PI Vmax: 253.8 cm/sec Procedure A complete two-dimensional transthoracic echocardiogram was performed (2D, M-mode, Doppler and color flow Doppler). Left Ventricle The left ventricular size, thickness and function are normal. The left ventricular ejection fraction is normal. Ejection Fraction = 55-60%. The left ventricular wall motion is normal. Right Ventricle The right ventricle is normal in size and function. Atria Normal left and right atrial size and function. Mitral Valve There is no mitral regurgitation noted. Tricuspid Valve There is trace tricuspid regurgitation. Right ventricular systolic pressure is normal. Aortic Valve No hemodynamically significant valvular aortic stenosis. No aortic regurgitation is present. Pulmonic Valve There is no pulmonic valvular regurgitation. Great Vessels The aortic root is normal size. Pericardium/Pleura There is no pericardial effusion. Interpretation Summary The left ventricular size, thickness and function are normal. The right ventricle is normal in size and function. There is trace tricuspid regurgitation. MD Jay Dominique 01/15/2018 12:12 PM
[2018-01-15] MEDS ORDERED: FUROSEMIDE 20 MG TABLET (FP) PO ONE (13:43)
[2018-01-15] MEDS ORDERED: PT OWN MED DRAWER 7, Y5N ONE (13:52)
--- NOTE | 2018-01-15 13:52 | DS ---
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: SUBJECTIVE: Patient seen and examined this morning at bedside. No new complaints. No Longer feeling chest palpitations. Worried about her new born at home. Otherwise, denies chest pain, SOB, nausea, vomiting, fevers, chills. OBJECTIVE: Vital Signs Period Temp Pulse Resp BP Sys/Brennan Pulse Ox Last 24 Hr 98.2 F-99.4 F 50-82 16-19 121-153/66-83 97-99 PHYSICAL EXAM GENERAL: The patient is awake, alert, and fully oriented, in no acute distress. HEAD: NCAT EYES: PERRL, EOMI ENT: Oropharynx clear without exudates, moist mucous membranes. NECK: Supple, No JVD LUNGS: Breath sounds equal, clear to auscultation bilaterally, no wheezes HEART: Regular rate and rhythm, S1, S2 without murmur ABDOMEN: Soft, nontender, nondistended, normoactive bowel sounds, no guarding EXTREMITIES: 2+ pulses, No calf tenderness, 2+ pitting edema. Muscle strength 5/ 5 to handgrip, Elbow flexion and extension, Hip flexion and extension, dorsiflexion and plantar flexion NEUROLOGICAL: Cranial nerves II through XII grossly intact. Normal speech, gait not observed. Gross sensation intact. SKIN: Warm, dry,no rashes or lesions noted. LABS Laboratory Results - last 24 hr 01/14/18 01/14/18 01/14/18 20:13 20:13 20:13 WBC 10.4 H RBC 3.70 Hgb 9.5 L Hct 29.6 L MCV 80.1 MCH 25.6 L MCHC 32.0 RDW 18.5 H Plt Count 489 H D MPV 7.3 L Absolute Neuts (auto) 5.3 Neutrophils % 50.7 Lymphocytes % 36.0 Monocytes % 7.7 Eosinophils % 4.9 H Basophils % 0.7 Nucleated RBC % 0 PT with INR 12.70 INR 1.12 H PTT (Actin FS) 28.2 Sodium Potassium Chloride Carbon Dioxide Anion Gap BUN Creatinine Creat Clearance w eGFR Random Glucose Calcium Phosphorus Magnesium Total Bilirubin AST ALT Alkaline Phosphatase Creatine Kinase 69 Troponin I < 0.02 B-Natriuretic Peptide 511.0 H Total Protein Albumin TSH Free T4 Urine Color Urine Appearance Urine pH Ur Specific Stanford Urine Protein Urine Glucose (UA) Urine Ketones Urine Blood Urine Nitrite Urine Bilirubin Urine Urobilinogen Ur Leukocyte Esterase Urine WBC (Auto) Urine RBC (Auto) Ur Epithelial Cells Urine Bacteria Urine Mucus Blood Type Antibody Screen 01/14/18 01/14/18 01/14/18 20:13 20:13 20:55 WBC RBC Hgb Hct MCV MCH MCHC RDW Plt Count MPV Absolute Neuts (auto) Neutrophils % Lymphocytes % Monocytes % Eosinophils % Basophils % Nucleated RBC % PT with INR INR PTT (Actin FS) Sodium 144 Potassium 4.3 Chloride 111 H Carbon Dioxide 24 Anion Gap 10 BUN 9 Creatinine 0.5 L Creat Clearance w eGFR > 60 Random Glucose 99 Calcium 8.7 Phosphorus Magnesium Total Bilirubin 0.2 AST 28 ALT 41 Alkaline Phosphatase 243 H Creatine Kinase Troponin I B-Natriuretic Peptide Total Protein 6.6 Albumin 2.4 L TSH Free T4 Urine Color Straw Urine Appearance Clear Urine pH 6.0 Ur Specific Stanford 1.009 Urine Protein Negative Urine Glucose (UA) Negative Urine Ketones Negative Urine Blood 3+ H Urine Nitrite Negative Urine Bilirubin Negative Urine Urobilinogen Negative Ur Leukocyte Esterase 2+ H Urine WBC (Auto) 45 Urine RBC (Auto) 26 Ur Epithelial Cells Rare Urine Bacteria Rare Urine Mucus Rare Blood Type A POSITIVE Antibody Screen Negative 01/15/18 01/15/18 01/15/18 07:00 07:00 07:00 WBC 10.3 H RBC 3.61 Hgb 9.1 L Hct 28.5 L MCV 78.9 L MCH 25.3 L MCHC 32.1 RDW 18.6 H Plt Count 437 H MPV 7.3 L Absolute Neuts (auto) Neutrophils % Lymphocytes % Monocytes % Eosinophils % Basophils % Nucleated RBC % PT with INR INR PTT (Actin FS) Sodium 144 Potassium 4.7 Chloride 110 H Carbon Dioxide 23 Anion Gap 10 BUN 7 Creatinine 0.5 L Creat Clearance w eGFR > 60 Random Glucose 109 H Calcium 8.7 Phosphorus 4.0 Magnesium 2.0 Total Bilirubin AST ALT Alkaline Phosphatase Creatine Kinase Troponin I B-Natriuretic Peptide Total Protein Albumin TSH 1.30 Cancelled Free T4 1.08 Cancelled Urine Color Urine Appearance Urine pH Ur Specific Stanford Urine Protein Urine Glucose (UA) Urine Ketones Urine Blood Urine Nitrite Urine Bilirubin Urine Urobilinogen Ur Leukocyte Esterase Urine WBC (Auto) Urine RBC (Auto) Ur Epithelial Cells Urine Bacteria Urine Mucus Blood Type Antibody Screen IMAGING: -CXR: No significant interval change. Borderline cardiomegaly without evidence of acute lung disease -DUPLEX: There is no evidence of deep venous thromboses in both lower extremities. -EKG: NORMAL SINUS RHYTHM -ECHO: LV Size, thickness and function are normal. RV is normal in size and function. Trace TR HOSPITAL COURSE: Date of Admission:01/14/18 Date of Discharge: 01/15/18 32 y/o F, who recently traveled to the [place] (on 12/20/18) w/ pmhx of Anemia requiring 2 unit transfusion s/p performed on 01/07, presented with 1 week hx of palpitations. She was found to have 2+ pitting Lower extremity edema for which a Duplex was done and did not reveal DVT. Cardiology was consulted and an Echo did not reveal a decreased LVEF. Her TSH and Free T4 were measured WNL. Her UA revealed a 2+ LE and 45 WBC's for which she was given one dose Ceftin. She remained asymptomatic during her hospital stay. She will be discharged with Ceftin 250mg BID X 3 days. She has an appointment with her environmental intern on 01/21/18. Minutes to complete discharge: 38 Discharge Summary Reason For Visit: PERIPARTUM CARDIMYOPATHY Current Active Problems Palpitations (Acute) Peripartum cardiomyopathy (Acute) Condition: Stable - Instructions Diet, Activity, Other Instructions: You were admitted because you felt a fast heart rate. An EKG and echo were done and were normal. Please follow up with a felt cutting machine operator if your continue to have symptoms. One of your blood values (Hemoglobin) was low. Please continue to monitor for any signs of bleeding and symptoms such as shortness of breath or dizziness. It is important your follow up with your primary care physician in one week. If you do not have one, you can follow up with the [facility]. Your urine showed , urinary tract infection uncomplicated . You are being discharged on an antibiotic, Ceftin, to be taken twice a day for 3 days. Please follow up with your environmental intern as needed. Continue all your other medications as prescribed. Please return to the ER if you have any signs or symptoms of chest pain, shortness of breath, uncontrollable fever, chills, nausea, vomiting, numbness, tingling, or weakness in any part of your body, changes in vision, or slurred speech. Please return to the ER if symptoms persist, worsen, or new symptoms arise. Referrals: Floyd Cabrera MD [Staff Physician] - Myriam Clark MD [Staff Physician] - Bteo Colon MD [Staff Physician] - Disposition: HOME - Home Medications Comprehensive Discharge Medication List: Ambulatory Orders Vit,Calc76/Iron/Folic [Pnv 29-1 Tablet] 1 tab PO DAILY 01/06/18 Acetaminophen [Tylenol .Regular Strength -] 500 mg PO Q4H PRN #30 tablet Ferrous Sulfate [Feosol] 325 mg PO BID #60 tab 01/08/18 Ibuprofen [Motrin -] 600 mg PO Q4H PRN #30 tablet 01/08/18 Vitamins (Sjr) - 1 tab PO DAILY #30 tablet 01/08/18 Sennosides/Docusate Sodium [Pericolace -] 2 tablet PO HS PRN #60 tablet Ferrous Sulfate [Feosol] 325 mg PO BID #90 tablet 01/11/18 Cefuroxime Axetil [Ceftin -] 250 mg PO BID #6 tablet 01/15/18 This patient is new to me today: Yes Date on this admission: 01/15/18 Emergency Visit: Yes ED Registration Date: 01/14/18 Care time: The patient presented to the Emergency Department on the above date and was hospitalized for further evaluation of their emergent condition. Critical Care patient: No - Discharge Referral Referred to [facility] No
[2018-01-15] MEDS ORDERED: CEFUROXIME AXETIL 250 MG TABLET PO ONE (14:15)
[2018-01-15 14:33] VITALS: BP 146/66; PULSE 54; TEMP 98.5
== END 2018-01-15 15:53 | disposition home or self-care (01) ==
LOC: JER 18:34 → JERBED 22:23 → UNDOADMOB 01-15 01:42 → JERBED 01-15 02:01 → J4S 01-15 04:42
PROVIDERS: ADMIT Internal Medicine; ATTEND Internal Medicine
DX: O90.3 Peripartum cardiomyopathy (principal); D64.9 Anemia, unspecified; N39.0 Urinary tract infection, site not specified; R00.2 Palpitations
CPT/HCPCS: 36415; 71046-TC-FY; 80048; 80053; 81003; 81015; 82550; 83735; 83880; 84100; 84439; 84443; 84484; 85025; 85027; 85610; 85730; 86850; 86900; 86901; 87086; 93005; 93010; 93306-TC; 93970-TC; 99285-25; G0378